=== PATIENT | male | born 2000 | race Caucasian/White ===

== ENCOUNTER 2025-07-12 08:05 | Emergency (ER) | payer SELFPAY ==
[2025-07-12] MEDS ORDERED: Ondansetron PF 4 MG/2 ML Vial ONE (08:25)
[2025-07-12 08:54] LABS: ALT (SGPT) 44 U/L (Less than 45); AST (SGOT) 39 U/L (11-34); Albumin 5.4 g/dL (3.1-4.5); Alkaline Phosphatase 64 U/L (40-110); Anion Gap 20 mmol/L (10-20); BUN (Urea Nitrogen) 28 mg/dL (8.9-20.6); Bilirubin, Total 1.0 mg/dL (0.3-1.2); Calc. Creatinine Clearance 0 mL/min (70-130); Calcium 10.8 mg/dL (7.8-10.44); Carbon Dioxide 22 mmol/L (22-29); Chloride 99 mmol/L (98-107); Globulin 3.4 g/dL (2.4-3.5); Glucose 103 mg/dL (70-105); Lipase 16 U/L (8-78); Potassium 3.8 mmol/L (3.5-5.1); Sodium 137 mmol/L (136-145)
[2025-07-12 08:57] LABS: #Basophils 0.1 thou/uL (0.0-0.2); #Eosinophils 0.1 thou/uL (0.0-0.7); #Lymphocytes 2.6 thou/uL (1.20-3.40); #Monocytes 0.9 thou/uL (0.11-0.59); #Neutrophils 4.7 thou/uL (1.40-6.50); %Basophils 0.9 % (0.0-1.0); %Eosinophils 0.8 % (0.0-10.0); %Lymphocytes 31.1 % (21.0-51.0); %Monocytes 11.3 % (0.0-10.0); %Neutrophils 56.0 % (42.0-75.0); Hematocrit 51.7 % (42.0-52.0); Hemoglobin 19.1 g/dL (14.0-18.0); Mean Corpuscular Hemoglobin 30.1 pg (27.0-31.0); Mean Corpuscular Volume 81.4 fl (78.0-98.0); Platelet Count 390 10x3/uL (130-400); Red Blood Cell (RBC) Count 6.35 mill/uL (4.70-6.10); White Blood Cell (WBC) Count 8.4 10x3/uL (4.8-10.8)
[2025-07-12 09:54] LABS: Glucose, Urine (Dipstick) Negative (Negative); Leukocyte Negative (Negative); Protein, Urine (Dipstick) Trace mg/dL (Neg-Trace); Specific Gravity, Urine 1.020 (1.005-1.030)
[2025-07-12 10:09] LABS: Bacteria/HPF Rare-Few HPF (None Seen); CAUTI Indications for Culture Pelvic or flank pain; RBC/HPF None Seen HPF (0-3); WBC/HPF 0-3 HPF (0-3)
[2025-07-12 10:10] LABS: Urine Culture Reflex No No
== END 2025-07-12 10:30 | disposition home or self-care (01) ==
LOC: BURERS 08:05
DX: T67.5XXA Heat exhaustion, unspecified, initial encounter (principal); E86.0 Dehydration; R11.2 Nausea with vomiting, unspecified; F17.210 Nicotine dependence, cigarettes, uncomplicated
CPT/HCPCS: 36415; 80053; 81001; 83690; 85025; 96361; 96374